=== PATIENT | female | born 1995 | race Caucasian/White ===

== ENCOUNTER 2017-07-04 09:27 | Emergency (ER) | payer OTHER ==
[2017-07-04 09:35] VITALS: RESP 16; TEMP 97.7
--- NOTE | 2017-07-04 09:59 | EDPHY ---
H & P Stated Complaint: L arm discoloration /swelling x 2 days--no trauma , factor V Time Seen by Provider: 07/04/17 09:54 HPI/ROS: CHIEF COMPLAINT: Left arm bruising HISTORY OF PRESENT ILLNESS: The patient is a 21-year-old female with a history of heroin abuse as well as factor 5 Leiden deficiency. She states that she had a relapse last week and was injecting into her left antecubital space. 4 days ago she developed a bruise to her left biceps area. Is becoming slightly discolored and warm. She is concerned that it is hot and will into her chest. Denies any chest pain or shortness of breath currently she has had this in the past. No fever. REVIEW OF SYSTEMS: Constitutional: denies: chills, fever, recent illness, recent injury EENTM: denies: blurred vision, double vision, nose congestion Respiratory: denies: cough, shortness of breath Cardiac: denies: chest pain, irregular heart rate, lightheadedness, palpitations Gastrointestinal/Abdominal: denies: abdominal pain, diarrhea, nausea, vomiting, blood streaked stools Genitourinary: denies: dysuria, frequency, hematuria, pain Musculoskeletal: Beach Skin: denies: lesions, rash, jaundice, bruising Neurological: denies: headache, numbness, paresthesia, tingling, dizziness, weakness Hematologic/Lymphatic: denies: blood clots, easy bleeding, easy bruising Immunologic/allergic: denies: HIV/AIDS, transplant EXAM: GENERAL: Well-appearing, well-nourished and in no acute distress. HEAD: Atraumatic, normocephalic. EYES: Pupils equal round and reactive to light, extraocular movements intact, sclera anicteric, conjunctiva are normal. ENT: TMs normal, nares patent, oropharynx clear without exudates. Moist mucous membranes. NECK: Normal range of motion, supple without lymphadenopathy or JVD. LUNGS: Breath sounds clear to auscultation bilaterally and equal. No wheezes rales or rhonchi. HEART: Regular rate and rhythm without murmurs, rubs or gallops. ABDOMEN: Soft, nontender, normoactive bowel sounds. No guarding, no rebound. No masses appreciated. BACK: No CVA tenderness, no spinal tenderness, step-offs or deformities EXTREMITIES: Bruising to left upper biceps region, slightly tender. Slightly warm. No erythema. Tract pollard below. NEUROLOGICAL: Cranial nerves II through XII grossly intact. Normal speech, normal gait. 5/5 strength, normal movement in all extremities, normal sensation PSYCH: Normal mood, normal affect. SKIN: Warm, dry, normal turgor, no visible rashes or lesions. Source: Patient Exam Limitations: No limitations - Personal History LMP (Females 10-55): Over 28 Days Ago Current Tetanus/Diphtheria Vaccine: Unsure Current Tetanus Diphtheria and Acellular Pertussis (TDAP): Unsure Tetanus Vaccine Date: 2005? - Medical/Surgical History Hx Asthma: No Hx Chronic Respiratory Disease: No Hx Diabetes: No Hx Cardiac Disease: No Hx Renal Disease: No Hx Cirrhosis: No Hx Alcoholism: Yes Hx HIV/AIDS: No Hx Splenectomy or Spleen Trauma: No Other PMH: Factor V, ADD, ETOH/substance abuse, heroin, cocaine abuse,anxiety, wisdom teeth, Lyme disease - Family History Significant Family History: No pertinent family hx - Social History Smoking Status: Current every day smoker Alcohol Use: Heavy Drug Use: Cocaine, Heroin, Marijuana Constitutional: Initial Vital Signs Temperature (C) 36.5 C 07/04/17 09:31 Heart Rate 88 07/04/17 09:31 Respiratory Rate 16 07/04/17 09:31 Blood Pressure 108/57 L 07/04/17 09:31 O2 Sat (%) 95 07/04/17 09:31 O2 Delivery Mode Room Air Allergies/Adverse Reactions: amoxicillin Allergy (Verified 09/09/16 01:12) Penicillins Allergy (Verified 09/09/16 01:12) Home Medications: Medication Instructions Recorded clonAZEPAM [Klonopin] 1 mg PO 05/17/15 Methadone HCl 07/04/17 Medical Decision Making - Diagnostics Imaging: Discussed imaging studies w/ yardage caller Radiologist ED Course/Re-evaluation: 10:30 a.m. the patient's ultrasound has been done. She does not want to wait for the results. She was to get to the methadone clinic before closes. She will call back for the results. Will discharge her at this time. The patient's ultrasound is negative. Differential Diagnosis: Partial list of the Differential diagnosis considered include but were not limited to; contusion, hematoma and although unlikely based on the history and physical exam, I also considered infection, DVT, ischemia, cellulitis, abscess. I discussed these differential diagnoses and the plan with the patient as well as the usual and expected course. The patient understands that the diagnosis is provisional and that in medicine we are not always correct and that further workup is often warranted. Usual and customary warnings were given. All of the patient's questions were answered. The patient was instructed to return to the emergency department should the symptoms at all worsen or return, otherwise to followup with the physician as we discussed. Departure - Departure Disposition: Home, Routine, Self-Care Clinical Impression: Contusion Qualifiers: Encounter type: initial encounter Contusion area: upper arm Laterality: left Qualified Code(s): S40.022A - Contusion of left upper arm, initial encounter Condition: Fair Instructions: Contusion in Adults (ED) Referrals: Rocco Rowe, [Primary Care Provider] - As per Instructions
[2017-07-04 10:50] VITALS: BP 112/74; PULSE 78; O2SAT 98
== END 2017-07-04 10:50 | disposition home or self-care (01) ==
DX: M79.81 Nontraumatic hematoma of soft tissue (principal); F17.200 Nicotine dependence, unspecified, uncomplicated

== ENCOUNTER → 2018-07-03 | Outpatient (CLI) | payer MEDICAID | LOC: SBRMNEURO 21:00 | PROVIDERS: ATTEND Student in an Organized Health Care Education/Training Program | DX: G47.33 Obstructive sleep apnea (adult) (pediatric) (principal) ==